=== PATIENT | male | born 1970 | race Caucasian/White ===

== ENCOUNTER 2016-06-29 23:45 | Emergency (ER) | payer OTHER ==
[~2016-06-29 23:45] MED LIST: AMLODIPINE BESY10 MG PO; AMOXICILLIN500 M1 PO; BACTRIM DS TABL1 TA1 PO; CATAPRES0.1 MG PO; CIPRO PO; FLAGYL PO; HYDROCHLOROTHIA25 MG PO; KEFLEX500 M2 PO; LISINOPRIL10 MG PO; LISINOPRIL20 MG PO; METOPROLOL SUCC25 MG PO; METOPROLOL TAR25 MG PO; NO MEDICATIONS; NORCO1 TAB 10/3 PO; NORVASC10 MG PO; PERCOCET5/325 PO; SUBOXONE 8 MG-1 EAC1 SL; TYLENOL #3 PO; ZANTAC PO; ZESTRIL10 M1 PO
[2016-06-29] MEDS ORDERED: LISINOPRIL PO (23:55)
== END 2016-06-30 00:52 | disposition home or self-care (01) ==
LOC: SED 23:45
DX: H92.01 Otalgia, right ear (principal); F15.10 Other stimulant abuse, uncomplicated; F10.10 Alcohol abuse, uncomplicated; F17.210 Nicotine dependence, cigarettes, uncomplicated; Z79.899 Other long term (current) drug therapy
CPT/HCPCS: 99283